=== PATIENT | female | born 1955 | race Caucasian/White ===

== ENCOUNTER 2018-02-04 13:53 | Emergency (ER) | payer OTHER ==
[2018-02-04 16:21] VITALS: BP 113/67
[2018-02-04] MEDS ORDERED: Tetan/Diph/Pertus SYR(Tdap)* 0.5 ML SYR(BOOSTRIX) use SYR IM ONE (16:28)
--- NOTE | 2018-02-04 16:35 | UC ---
Bite Injury/Animal HPI - HPI Summary HPI Summary: Pt c/o dog bite to posterior right lower leg at noon today. Pt states her tetanus is over 5 years old. Dog is a known pet. - History of Current Complaint Chief Complaint: UCBiteInjury Stated Complaint: DOG BITE Time Seen by Provider: 02/04/18 16:11 Hx Obtained From: Patient ?: No Severity Currently: Mild Severity Initially: Mild Pain Intensity: 3 Onset/Duration: Sudden Onset, Still Present Type of Bite: Pet Has Animal Been Immunized?: Yes Character: Puncture Aggravating Factor(s): Nothing Alleviating Factor(s): Rest Associated Signs And Symptoms: Positive: Negative Hx of Bite: Unprovoked Animal Available for Observation: Yes - Allergies/Home Medications Allergies/Adverse Reactions: Allergies Allergy/AdvReac Type Severity Reaction Status Date / Time No Known Allergies Allergy Verified 02/04/18 16:10 Home Medications: Home Medications Calcium Carb/Mag/Vitamin D3 [Coral Calcium 1,500 mg Cap] 1 cap PO DAILY [History Confirmed 02/04/18] L.acidoph,Paracasei, B.lactis [Probiotic] 1 each PO DAILY 02/04/18 [History Confirmed 02/04/18] Lysine HCl [l-Lysine] 500 mg PO DAILY 02/04/18 [History Confirmed 02/04/18] Thyroid Supplement 02/04/18 [History] PMH/Surg Hx/FS Hx/Imm Hx Previously Healthy: Yes - Surgical History Surgical History: None - Family History Known Family History: Positive: Cardiac Disease - Social History Occupation: Employed Full-time Lives: With Family Alcohol Use: Rare Substance Use Type: None Smoking Status (MU): Never Smoked Tobacco Have You Smoked in the Last Year: No - Immunization History Most Recent Tetanus Shot: OVER 5 YEARS AGO Review of Systems Constitutional: Negative Skin: Bruising, Other - puncture wound, bruising, around 3 punctures wound Eyes: Negative ENT: Negative Respiratory: Negative Cardiovascular: Negative Gastrointestinal: Negative Genitourinary: Negative Motor: Negative Neurovascular: Negative Musculoskeletal: Edema - mild swelling aournd wound Neurological: Negative Psychological: Negative Is Patient Immunocompromised?: No All Other Systems Reviewed And Are Negative: Yes Physical Exam Triage Information Reviewed: Yes Appearance: Well-Appearing Vital Signs: Initial Vital Signs Temp 98.4 F 02/04/18 16:13 Pulse 67 02/04/18 16:13 Resp 18 02/04/18 16:13 BP 113/67 02/04/18 16:13 Pulse Ox 100 02/04/18 16:13 Vital Signs Reviewed: Yes Eye Exam: Normal ENT Exam: Normal Dental Exam: Normal Neck exam: Normal Respiratory: Positive: No respiratory distress Musculoskeletal Exam: Normal Musculoskeletal: Positive: Strength Intact, ROM Intact, Edema @ - right mid posterior calf Neurological Exam: Normal Psychological Exam: Normal Skin Exam: Other - three puncture wounds, bleeding controlled, mild swelling and bruising Bite Injury Course/Dx - Differential Dx/Diagnosis Differential Diagnosis/HQI/PQRI: Puncture, Other - dog bite needs tetanus Provider Diagnoses: Dog Bite Discharge - Discharge Plan Condition: Stable Disposition: HOME Prescriptions: Amoxicillin/Clavulanate TAB* [Augmentin TAB 875*] 875 mg PO Q12H #20 tab Patient Education Materials: Animal Bite (ED) Referrals: [facility] [Outside] Non Staff,Doctor [Primary Care Provider] -
== END 2018-02-04 16:59 | disposition home or self-care (01) ==
LOC: UCCORT 13:53
DX: S81.851A Open bite, right lower leg, initial encounter (principal); W54.0XXA Bitten by dog, initial encounter; Y93.9 Activity, unspecified; Y92.9 Unspecified place or not applicable
CPT/HCPCS: 90471; 90715; 99212; G0463